=== PATIENT | male | born 1985 | race Hispanic/Latino ===

== ENCOUNTER 2024-09-21 21:55 | Emergency (ER) | payer SELFPAY ==
[2024-09-21] MEDS ORDERED: Lidocaine 1% w/Epinephrine 1:200K 30 ML VIAL ONE (22:03)
[2024-09-21 23:17] LABS: #Basophils 0.11 10x3/uL (0.0-0.2); #Eosinophils 0.64 10x3/uL (0.0-0.5); #Neutrophils 2.67 10x3/uL (1.5-8.4); %Basophils 1.9 % (0.0-2.0); %Eosinophils 11.1 % (0.0-6.0); %Lymphocytes 31.8 % (18.0-47.0); %Monocytes 8.7 % (0.0-10.0); %Neutrophils 46.2 % (40.0-75.0); Hematocrit 37.6 % (38.8-50.0); Hemoglobin 12.7 g/dL (13.5-17.5); Mean Corpuscular HGB CONC 33.8 g/dL (32.0-36.0); Mean Corpuscular Hemoglobin 32.3 pg (27.0-33.0); Mean Corpuscular Volume 95.7 fL (81.2-95.1); Mean Platelet Volume 9.8 fL (7.4-10.4); Platelet Count 144 10x3/uL (150-450); Red Blood Cell (RBC) Count 3.93 10x6/uL (4.32-5.72); White Blood Cell (WBC) Count 5.78 10x3/uL (3.5-10.5)
[2024-09-21 23:28] LABS: ALT (SGPT) 96 U/L (8-55); AST (SGOT) 128 U/L (5-34); Albumin 3.8 g/dL (3.5-5.0); Alkaline Phosphatase 119 U/L (40-110); Anion Gap 17 mmol/L (10-20); BUN (Urea Nitrogen) Less than 4 mg/dL (8.9-20.6); Bilirubin, Total 0.5 mg/dL (0.2-1.2); Calc. Creatinine Clearance 0 mL/min (70-130); Calcium 8.8 mg/dL (7.8-10.44); Carbon Dioxide 22 mmol/L (22-29); Chloride 105 mmol/L (98-107); Estimated GFR 121; Globulin 4.3 g/dL (2.4-3.5); Glucose 139 mg/dL (70-105); Potassium 3.7 mmol/L (3.5-5.1); Protein, Total 8.1 g/dL (6.0-8.3); Sodium 140 mmol/L (136-145)
[2024-09-22] MEDS ORDERED: Boostrix 0.5 ML (Tdap) VIAL (>/=7 yrs of age) ONE (01:54)
== END 2024-09-22 02:02 | disposition home or self-care (01) ==
LOC: CSHERS 21:55
DX: S01.81XA Laceration without foreign body of other part of head, initial encounter (principal); F10.129 Alcohol abuse with intoxication, unspecified; W20.8XXA Other cause of strike by thrown, projected or falling object, initial encounter; Y90.8 Blood alcohol level of 240 mg/100 ml or more
CPT/HCPCS: 36415; 70450; 80053; 80307; 85025; 90471; 90715